=== PATIENT | female | born 1955 | race Caucasian/White ===

== ENCOUNTER 2017-03-20 15:55 | Outpatient (CLI) | payer BC | END 2017-03-20 20:15 | disposition home or self-care (01) | LOC: SMA 15:55 | PROVIDERS: ATTEND Family Medicine | DX: Z12.31 Encounter for screening mammogram for malignant neoplasm of breast (principal) | CPT/HCPCS: G0202 ==

== ENCOUNTER 2019-08-09 09:32 | Outpatient (CLI) | payer BC | END 2019-08-09 20:42 | disposition home or self-care (01) | LOC: SMA 09:32 | PROVIDERS: ATTEND Family Medicine | DX: Z12.31 Encounter for screening mammogram for malignant neoplasm of breast (principal) | CPT/HCPCS: 77067 ==

== ENCOUNTER 2024-03-10 11:21 | Outpatient (CLI) | payer OTHER | END 2024-03-10 20:52 | disposition home or self-care (01) | LOC: SMA 11:21 | PROVIDERS: ATTEND Nurse Practitioner Family | DX: Z12.31 Encounter for screening mammogram for malignant neoplasm of breast (principal); N64.89 Other specified disorders of breast; R59.0 Localized enlarged lymph nodes | CPT/HCPCS: 77067 ==